=== PATIENT | female | born 1965 | race Hispanic/Latino ===

== ENCOUNTER 2017-06-07 12:47 | Emergency (ER) | payer OTHER ==
[~2017-06-07 12:47] MED LIST: INSLAN SQ; LINA5TAB PO; METO10TA41 PO; MIDO2.5T PO; PANT40TA25 PO; POTA10CA44 PO
[2017-06-07 15:07] LABS: BASOPHILS % (AUTO) 0.3 % (0.0-5.0); HEMATOCRIT 32.4 % (36-48); LYMPHOCYTES % (AUTO) 19.8 % (21.0-51.0); MEAN CORPUSCULAR HEMOGLOBIN 30.4 pg (27.0-33.0); MEAN CORPUSCULAR HGB CONC 35.8 g/dL (32.0-36.0); MEAN CORPUSCULAR VOLUME 85.1 fL (79-99); MONOCYTES % (AUTO) 5.7 % (3.0-13.0); NEUTROPHILS % (AUTO) 74.2 % (40.0-77.0); NUCLEATED RED BLOOD CELLS 0.1 % (0.0-0.19); PLATELET COUNT (AUTO) 309 K/uL (130-400); RED CELL DISTRIBUTION WIDTH 14.5 % (11.0-15.5); WHITE BLOOD COUNT (AUTO) 7.3 K/uL (4.8-10.8)
[2017-06-07 15:16] LABS: CREATININE 0.5 mg/dL (0.5-1.5)
[2017-06-07 15:21] LABS: ALBUMIN 3.5 g/dL (3.5-5.0); BILIRUBIN,TOTAL 0.4 mg/dL (0.2-1.0); TOTAL PROTEIN, SERUM 6.8 g/dL (6.0-8.3)
[2017-06-07] MEDS ORDERED: SODIUM CHLORIDE 0.9% 1000ML 1,000 ML IV ONE (15:22)
[2017-06-07] MEDS ORDERED: LIDOCAINE HCL 2% VISCOUS 15 ML UDCUP ONE (15:22)
== END 2017-06-07 18:03 | disposition home or self-care (01) ==
LOC: EDH 12:47
DX: K56.41 Fecal impaction (principal); K21.9 Gastro-esophageal reflux disease without esophagitis; E11.9 Type 2 diabetes mellitus without complications; Z79.4 Long term (current) use of insulin
CPT/HCPCS: 36415; 80053; 85025; 96360; 96361; 99285; J7030

== ENCOUNTER 2017-06-16 12:14 | Emergency (ER) | payer OTHER ==
[2017-06-16 13:20] LABS: BASOPHILS % (AUTO) 0.5 % (0.0-5.0); EOSINOPHILS % (AUTO) 0.2 % (0.0-8.0); LYMPHOCYTES % (AUTO) 28.1 % (21.0-51.0); MEAN CORPUSCULAR HEMOGLOBIN 29.6 pg (27.0-33.0); MEAN CORPUSCULAR VOLUME 84.5 fL (79-99); MONOCYTES % (AUTO) 8.7 % (3.0-13.0); NEUTROPHILS % (AUTO) 62.5 % (40.0-77.0); PLATELET COUNT (AUTO) 313 K/uL (130-400); RED BLOOD CELL COUNT(AUTO) 4.26 MIL/uL (4.00-5.50); WHITE BLOOD COUNT (AUTO) 4.3 K/uL (4.8-10.8)
[2017-06-16] MEDS ORDERED: SODIUM CHLORIDE 0.9% 1000ML 1,000 ML IV ONE ×3 (13:21→20:22)
[2017-06-16] MEDS ORDERED: LORAZEPAM 2 MG/ML 1 ML VIAL ONE (13:22)
[2017-06-16 13:38] LABS: CREATININE 0.6 mg/dL (0.5-1.5); POTASSIUM 4.1 mmol/L (3.5-5.1)
[2017-06-16 13:42] LABS: ALBUMIN 3.6 g/dL (3.5-5.0); BILIRUBIN,TOTAL 0.4 mg/dL (0.2-1.0); TOTAL PROTEIN, SERUM 7.6 g/dL (6.0-8.3)
[2017-06-16 14:28] LABS: ACETAMINOPHEN < 1 mcg/mL (10-30); ALCOHOL, BLOOD < 3 mg/dL (0-10); SALICYLATE < 2.8 mg/dL (2.8-20.0)
[2017-06-16 14:44] LABS: APPEARANCE,URINE SLIGHTLY CLOUDY (CLEAR); BILIRUBIN,URINE Negative (NEGATIVE); COLOR,URINE Yellow (YELLOW); GLUCOSE, URINE (UA) TRACE mg/dL (NEGATIVE); KETONES,URINE 15 mg/dL (NEGATIVE); LEUKOCYTE ESTERASE ,URINE Small (NEGATIVE); NITRATE,URINE Negative (NEGATIVE); OCCULT BLOOD,URINE Negative (NEGATIVE); PROTEIN,URINE Negative (NEGATIVE); UROBILINOGEN,URINE 0.2 mg/dL (0.2-1.0)
[2017-06-16] MEDS ORDERED: ONDANSETRON HCL 4 MG/2 ML VIAL ONE ×2 (14:44→20:37)
[2017-06-16 15:01] LABS: HCG,QUAL RESULT NEGATIVE (NEGATIVE)
[2017-06-16 15:04] LABS: AMPHET/METH SCREEN,URINE NEGATIVE (NEGATIVE); BARBITURATE SCREEN, URINE NEGATIVE (NEGATIVE); BENZODIAZEPINES SCREEN,URINE NEGATIVE (NEGATIVE); CANNABINOID SCREEN,URINE NEGATIVE (NEGATIVE); COCAINE SCREEN,URINE NEGATIVE (NEGATIVE); OPIATE SCREEN,URINE NEGATIVE (NEGATIVE); PHENCYCLIDINE SCREEN,URINE NEGATIVE (NEGATIVE)
[2017-06-16 15:22] LABS: BACTERIA,URINE Rare /HPF (None Seen); RBC,URINE 0-1 /HPF (0-1); YEAST,URINE BUDDING Moderate /HPF (None Seen)
[2017-06-16 15:23] LABS: SQUAMOUS EPITHELIAL CELL,UR Moderate /LPF (0-2)
== END 2017-06-16 21:17 | disposition short-term general hospital (02) ==
LOC: EDH 12:14
DX: F41.9 Anxiety disorder, unspecified (principal); F32.9 Major depressive disorder, single episode, unspecified; R63.0 Anorexia; R11.2 Nausea with vomiting, unspecified; E11.9 Type 2 diabetes mellitus without complications; K21.9 Gastro-esophageal reflux disease without esophagitis; E87.6 Hypokalemia; Z88.1 Allergy status to other antibiotic agents; Z79.899 Other long term (current) drug therapy
CPT/HCPCS: 36415; 80053; 80305; 81001; 81025; 83690; 84484; 85025; 87804 ×2; 93005; 96361; 96374; 96375; 96376; 99285; G0480 ×2; G0481; J2060; J2405 ×2; J7030 ×3

== ENCOUNTER → 2017-06-29 | Outpatient (CLI) | payer OTHER ==
[~2017-06-29] MED LIST changes: +LAMO25TA3 PO; +METO5TAB2 PO; +MULT-1296 PO; +Midodrine Hcl PO; +SERT25TA5 PO; +SULF1TAB42 PO
[2017-06-29 09:57] LABS: HEMATOCRIT 31.9 % (36-48); MEAN CORPUSCULAR HEMOGLOBIN 29.4 pg (27.0-33.0); MEAN CORPUSCULAR HGB CONC 34.2 g/dL (32.0-36.0); MEAN CORPUSCULAR VOLUME 86.1 fL (79-99); PLATELET COUNT (AUTO) 320 K/uL (130-400); RED CELL DISTRIBUTION WIDTH 13.9 % (11.0-15.5); WHITE BLOOD COUNT (AUTO) 6.7 K/uL (4.8-10.8)
[2017-06-29 10:17] LABS: ALBUMIN 3.2 g/dL (3.5-5.0); BILIRUBIN,DIRECT 0.1 mg/dL (0.0-0.3); BILIRUBIN,TOTAL 0.3 mg/dL (0.2-1.0); CREATININE 0.4 mg/dL (0.5-1.5); MAGNESIUM 1.7 mg/dL (1.80-2.40); PHOSPHORUS 3.8 mg/dL (2.5-4.9); POTASSIUM 4.2 mmol/L (3.5-5.1); TOTAL PROTEIN, SERUM 6.5 g/dL (6.0-8.3)
== END | disposition home or self-care (01) ==
LOC: LAB 09:11
PROVIDERS: ATTEND Family Medicine
DX: E11.43 Type 2 diabetes mellitus with diabetic autonomic (poly)neuropathy (principal)
CPT/HCPCS: 36415; 80048; 80076; 83735; 84100; 85027

== ENCOUNTER → 2017-07-11 | Outpatient (CLI) | payer OTHER ==
[2017-07-11 12:21] LABS: THYROID STIMULATING HORMONE 2.33 uIU/mL (0.36-3.74)
== END ==
LOC: LAB 10:46
PROVIDERS: ATTEND Internal Medicine Cardiovascular Disease
DX: I95.9 Hypotension, unspecified (principal); R00.0 Tachycardia, unspecified
CPT/HCPCS: 36415; 84436; 84443; 84479; 85378

== ENCOUNTER 2017-08-05 16:47 | Inpatient (IN) | payer OTHER ==
[~2017-08-05] VITALS: Ht 149.9 cm; Wt 35.1 kg
[~2017-08-05 16:47] MED LIST changes: -LAMO25TA3 PO; -METO5TAB2 PO; -MULT-1296 PO; -Midodrine Hcl PO; -SERT25TA5 PO; -SULF1TAB42 PO
[2017-08-05] MEDS ORDERED: ONDANSETRON HCL 4 MG/2 ML VIAL ONE (17:50)
[2017-08-05 17:57] LABS: BASOPHILS % (AUTO) 0.3 % (0.0-5.0); EOSINOPHILS % (AUTO) 0.2 % (0.0-8.0); HEMATOCRIT 35.8 % (36-48); LYMPHOCYTES % (AUTO) 28.5 % (21.0-51.0); MEAN CORPUSCULAR HEMOGLOBIN 29.7 pg (27.0-33.0); MEAN CORPUSCULAR HGB CONC 35.2 g/dL (32.0-36.0); MEAN CORPUSCULAR VOLUME 84.4 fL (79-99); MONOCYTES % (AUTO) 7.9 % (3.0-13.0); NEUTROPHILS % (AUTO) 63.1 % (40.0-77.0); NUCLEATED RED BLOOD CELLS 0.1 % (0.0-0.19); PLATELET COUNT (AUTO) 362 K/uL (130-400); RED BLOOD CELL COUNT(AUTO) 4.24 MIL/uL (4.00-5.50); WHITE BLOOD COUNT (AUTO) 6.3 K/uL (4.8-10.8)
[2017-08-05 18:08] LABS: CREATININE 0.6 mg/dL (0.5-1.5); POTASSIUM 3.8 mmol/L (3.5-5.1)
[2017-08-05 18:13] LABS: ALBUMIN 3.7 g/dL (3.5-5.0); BILIRUBIN,TOTAL 0.5 mg/dL (0.2-1.0); TOTAL PROTEIN, SERUM 7.7 g/dL (6.0-8.3)
[2017-08-05 18:13] LABS: APPEARANCE,URINE Turbid (CLEAR); BILIRUBIN,URINE Negative (NEGATIVE); COLOR,URINE Yellow (YELLOW); GLUCOSE, URINE (UA) 250 mg/dL (NEGATIVE); KETONES,URINE 15 mg/dL (NEGATIVE); LEUKOCYTE ESTERASE ,URINE Moderate (NEGATIVE); NITRATE,URINE Negative (NEGATIVE); OCCULT BLOOD,URINE Negative (NEGATIVE); PH,URINE 6.5 (5.0-8.0); PROTEIN,URINE Trace (NEGATIVE)
[2017-08-05 18:18] LABS: BACTERIA,URINE Moderate /HPF (None Seen); RBC,URINE None Seen /HPF (0-1)
[2017-08-05 18:19] LABS: YEAST,URINE BUDDING Many /HPF (None Seen)
[2017-08-05 20:11] VITALS: BP 153/82
[2017-08-05] MEDS ORDERED: SODIUM CHLORIDE 0.9% 1000ML 1,000 ML IV SCH (20:30)
[2017-08-05] MEDS ORDERED: SERT25TA5 PO (21:29)
[2017-08-05] MEDS ORDERED: METO5TAB2 PO (21:29)
[2017-08-05] MEDS ORDERED: INSLAN SQ (21:29)
[2017-08-05] MEDS ORDERED: MULT-1296 PO (21:29)
[2017-08-05] MEDS: FAMOTIDINE 20MG TAB 20 MG TAB PO SCH (21:57)
[2017-08-05] MEDS: SODIUM CHLORIDE 0.9% 1000ML 1,000 ML IV SCH (23:22)
[2017-08-05] MEDS ORDERED: ONDANSETRON HCL 4 MG/2 ML VIAL IV PRN (23:30)
[2017-08-05] MEDS: INSULIN HUMULIN R 100 UNIT/ML 3ML SQ SCH (23:30)
[2017-08-05] MEDS ORDERED: GLUCAGON 1MG KIT 1 MG ML IM PRN (23:30)
[2017-08-05] MEDS: METOCLOPRAMIDE 10 MG/2 ML VIAL IVP SCH (23:30)
[2017-08-05] MEDS ORDERED: CEFTRIAXONE 1GM/D5W 50ML 50 ML IV SCH (23:30)
[2017-08-05] MEDS ORDERED: POTASSIUM CHLORIDE 20MEQ/100ML 100 ML IV PRN (23:30)
[2017-08-05] MEDS ORDERED: DEXTROSE 50%-WATER 50 ML DISP.SYRIN IV PRN (23:30)
[2017-08-05] MEDS ORDERED: MORPHINE SULFATE 2 MG/ML 1ML SYG IV PRN (23:30)
[2017-08-05] MEDS ORDERED: LIDOCAINE HCL-MPF 1% 2ML VIAL IVP PRN (23:30)
[2017-08-05 23:35] VITALS: BP 146/89
[2017-08-05] MEDS ORDERED: FLUCONAZOLE 100 MG TAB PO ONE (23:45)
[2017-08-06] MEDS: CEFTRIAXONE SODIUM 1 GM IVP SCH (01:14)
[2017-08-06] MEDS: SODIUM CHLORIDE 0.9% 1000ML 1,000 ML IV SCH ×3 (01:14→12:06)
[2017-08-06] MEDS: FLUCONAZOLE 100 MG TAB ONE ×2 (01:15→01:18)
[2017-08-06 03:55] VITALS: BP 152/92
[2017-08-06] MEDS: INSULIN HUMULIN R 100 UNIT/ML 3ML SQ SCH ×3 (05:30→20:34)
[2017-08-06 06:01] LABS: HEMATOCRIT 34.9 % (36-48); MEAN CORPUSCULAR HEMOGLOBIN 29.6 pg (27.0-33.0); MEAN CORPUSCULAR HGB CONC 35.3 g/dL (32.0-36.0); MEAN CORPUSCULAR VOLUME 83.8 fL (79-99); NUCLEATED RED BLOOD CELLS 0.1 % (0.0-0.19); PLATELET COUNT (AUTO) 347 K/uL (130-400); RED BLOOD CELL COUNT(AUTO) 4.16 MIL/uL (4.00-5.50); RED CELL DISTRIBUTION WIDTH 12.8 % (11.0-15.5); WHITE BLOOD COUNT (AUTO) 5.5 K/uL (4.8-10.8)
[2017-08-06 06:07] LABS: CREATININE 0.4 mg/dL (0.5-1.5); POTASSIUM 3.4 mmol/L (3.5-5.1)
[2017-08-06] MEDS: POTASSIUM CHLORIDE 20 MEQ ERTAB PO PRN (06:53)
[2017-08-06 07:00] VITALS: BP 158/95
[2017-08-06] MEDS: METOCLOPRAMIDE 10 MG/2 ML VIAL IVP SCH ×3 (07:30→23:30)
[2017-08-06] MEDS: FAMOTIDINE/PF 20 MG/2 ML VIAL IV SCH ×2 (09:00→19:55)
[2017-08-06] MEDS: FAMOTIDINE 20MG TAB 20 MG TAB PO SCH (09:01)
[2017-08-06] MEDS ORDERED: LIDOCAINE HCL 2% VISCOUS 30 ML, MAG HYDROX/AL HYDROX/SIMETH 30 ML, DICYCLOMINE HCL 20 MG PO PRN ×3 (09:45)
[2017-08-06] MEDS ORDERED: LIDOCAINE HCL 2% VISCOUS 30 ML, MAG HYDROX/AL HYDROX/SIMETH 30 ML, BELLADONNA-PHENOBARB... PO PRN ×3 (09:45)
[2017-08-06] MEDS ORDERED: COMPOUND PO MISCELLANEOUS 1 EACH MISC MISC PRN (09:45)
[2017-08-06] MEDS ORDERED: LACTULOSE 20 GM/30 ML UDCUP PO PRN (09:45)
[2017-08-06 11:00] VITALS: BP 157/90
[2017-08-06] MEDS ORDERED: MULTIVITAMIN WITH MINERALS TABLET PO ONE (12:01)
[2017-08-06] MEDS: MEGESTROL 400 MG/10 ML UDCUP PO SCH (12:05)
[2017-08-06] MEDS: POLYETHYLENE GLYCOL 3350 17 GM POWD.PACK PO SCH (12:06)
[2017-08-06 15:50] VITALS: BP 155/92
[2017-08-06] MEDS: POTASSIUM CHLORIDE 10% ELIXIR 20 MEQ/15 ML UDCUP PO PRN (18:25)
[2017-08-06 19:00] VITALS: BP 153/98
[2017-08-06] MEDS: THIAMINE HCL 100 MG/ML 2ML VIAL IVP SCH (19:56)
[2017-08-06] MEDS: LAMOTRIGINE 25 MG TAB PO SCH (19:56)
[2017-08-06] MEDS: ALPRAZOLAM 0.25 MG TABLET PO SCH (20:30)
[2017-08-06 23:48] VITALS: BP 142/87
[2017-08-07] MEDS: CEFTRIAXONE SODIUM 1 GM IVP SCH (00:27)
[2017-08-07 03:55] VITALS: BP 144/89
[2017-08-07 05:12] LABS: HEMATOCRIT 36.6 % (36-48); MEAN CORPUSCULAR HEMOGLOBIN 29.6 pg (27.0-33.0); MEAN CORPUSCULAR HGB CONC 35.3 g/dL (32.0-36.0); MEAN CORPUSCULAR VOLUME 83.8 fL (79-99); NUCLEATED RED BLOOD CELLS 0.1 % (0.0-0.19); PLATELET COUNT (AUTO) 372 K/uL (130-400); RED BLOOD CELL COUNT(AUTO) 4.37 MIL/uL (4.00-5.50); RED CELL DISTRIBUTION WIDTH 12.8 % (11.0-15.5); WHITE BLOOD COUNT (AUTO) 5.6 K/uL (4.8-10.8)
[2017-08-07] MEDS: INSULIN HUMULIN R 100 UNIT/ML 3ML SQ SCH ×4 (05:30→23:30)
[2017-08-07 05:31] LABS: CREATININE 0.5 mg/dL (0.5-1.5); MAGNESIUM 1.9 mg/dL (1.80-2.40); PHOSPHORUS 3.3 mg/dL (2.5-4.9); POTASSIUM 4.1 mmol/L (3.5-5.1)
[2017-08-07] MEDS: METOCLOPRAMIDE 10 MG/2 ML VIAL IVP SCH ×4 (06:17→23:30)
[2017-08-07] MEDS: LINAGLIPTIN 5 MG TABLET PO SCH (08:56)
[2017-08-07] MEDS: MULTIVITAMINS/MINERALS/IRO TAB PO SCH (08:56)
[2017-08-07] MEDS: THIAMINE HCL 100 MG/ML 2ML VIAL IVP SCH (08:57)
[2017-08-07] MEDS: SERTRALINE HCL 50 MG TABLET PO SCH (08:57)
[2017-08-07] MEDS: FAMOTIDINE/PF 20 MG/2 ML VIAL IV SCH ×2 (08:57→20:34)
[2017-08-07] MEDS: ALPRAZOLAM 0.25 MG TABLET PO SCH ×3 (08:57→20:35)
[2017-08-07] MEDS: MEGESTROL 400 MG/10 ML UDCUP PO SCH (08:57)
[2017-08-07] MEDS: ENOXAPARIN SODIUM 30 MG/0.3 ML SQ SCH (08:58)
[2017-08-07] MEDS: POLYETHYLENE GLYCOL 3350 17 GM POWD.PACK PO SCH (08:59)
[2017-08-07 10:21] VITALS: BP 146/91
[2017-08-07] MEDS: SODIUM CHLORIDE 0.9% 1000ML 1,000 ML IV SCH (16:35)
[2017-08-07 18:30] VITALS: BP 132/87
[2017-08-07 20:00] VITALS: BP 144/84
[2017-08-07] MEDS: LAMOTRIGINE 25 MG TAB PO SCH (20:34)
[2017-08-07 23:56] VITALS: BP 145/93
[2017-08-07 23:58] VITALS: BP 108/75
[2017-08-08] VITALS: BP 74/54
[2017-08-08] MEDS: CEFTRIAXONE SODIUM 1 GM IVP SCH (01:27)
[2017-08-08 04:00] VITALS: BP 129/79
[2017-08-08 05:04] LABS: MEAN CORPUSCULAR HEMOGLOBIN 29.3 pg (27.0-33.0); MEAN CORPUSCULAR HGB CONC 35.1 g/dL (32.0-36.0); MEAN CORPUSCULAR VOLUME 83.6 fL (79-99); PLATELET COUNT (AUTO) 352 K/uL (130-400); RED BLOOD CELL COUNT(AUTO) 4.19 MIL/uL (4.00-5.50); RED CELL DISTRIBUTION WIDTH 12.5 % (11.0-15.5); WHITE BLOOD COUNT (AUTO) 6.5 K/uL (4.8-10.8)
[2017-08-08 05:45] LABS: CREATININE 0.5 mg/dL (0.5-1.5); POTASSIUM 3.3 mmol/L (3.5-5.1)
[2017-08-08] MEDS: METOCLOPRAMIDE 10 MG/2 ML VIAL IVP SCH (06:13)
[2017-08-08] MEDS: POTASSIUM CHLORIDE 20 MEQ ERTAB PO PRN ×3 (06:28→14:48)
[2017-08-08] MEDS: INSULIN HUMULIN R 100 UNIT/ML 3ML SQ SCH ×4 (06:30→21:25)
[2017-08-08] MEDS: THIAMINE HCL 100 MG/ML 2ML VIAL IVP SCH (07:53)
[2017-08-08] MEDS: FAMOTIDINE/PF 20 MG/2 ML VIAL IV SCH ×2 (07:53→20:46)
[2017-08-08] MEDS: MEGESTROL 400 MG/10 ML UDCUP PO SCH (07:53)
[2017-08-08] MEDS: SERTRALINE HCL 50 MG TABLET PO SCH (07:54)
[2017-08-08] MEDS: MULTIVITAMINS/MINERALS/IRO TAB PO SCH (07:54)
[2017-08-08] MEDS: POLYETHYLENE GLYCOL 3350 17 GM POWD.PACK PO SCH (07:54)
[2017-08-08] MEDS: ENOXAPARIN SODIUM 30 MG/0.3 ML SQ SCH (07:55)
[2017-08-08] MEDS: LINAGLIPTIN 5 MG TABLET PO SCH (07:58)
[2017-08-08] MEDS: ALPRAZOLAM 0.25 MG TABLET PO SCH ×3 (07:58→21:00)
[2017-08-08 08:00] VITALS: BP_SYST 102; BP_SYST 111; BP_DIAS 53; BP_DIAS 62
[2017-08-08] MEDS: POTASSIUM CHLORIDE 10% ELIXIR 20 MEQ/15 ML UDCUP PO PRN (08:32)
[2017-08-08 12:00] VITALS: BP_SYST 120; BP_SYST 145; BP_SYST 76; BP_DIAS 47; BP_DIAS 77; BP_DIAS 85
[2017-08-08] MEDS: MIDODRINE HCL 5 MG TABLET PO SCH ×2 (14:47→20:46)
[2017-08-08] MEDS: METOCLOPRAMIDE 10 MG TABLET PO SCH ×2 (14:48→21:59)
[2017-08-08 15:46] VITALS: BP 147/95
[2017-08-08] MEDS: INSULIN GLARGINE 100 UNITS/ML 10 ML VIAL SQ SCH (16:48)
[2017-08-08 20:00] VITALS: BP 81/53
[2017-08-08] MEDS: LAMOTRIGINE 25 MG TAB PO SCH (20:46)
[2017-08-09] VITALS (8 sets, daily range): BP systolic 64–149; BP diastolic 43–95
[2017-08-09] MEDS: CEFTRIAXONE SODIUM 1 GM IVP SCH (01:00)
[2017-08-09 04:44] LABS: CREATININE 0.7 mg/dL (0.5-1.5); POTASSIUM 4.6 mmol/L (3.5-5.1)
[2017-08-09] MEDS: METOCLOPRAMIDE 10 MG TABLET PO SCH ×3 (05:56→21:53)
[2017-08-09] MEDS: INSULIN HUMULIN R 100 UNIT/ML 3ML SQ SCH ×4 (05:57→21:53)
[2017-08-09] MEDS: INSULIN GLARGINE 100 UNITS/ML 10 ML VIAL SQ SCH ×2 (06:40→16:42)
[2017-08-09] MEDS: SERTRALINE HCL 50 MG TABLET PO SCH (08:32)
[2017-08-09] MEDS: MULTIVITAMINS/MINERALS/IRO TAB PO SCH (08:32)
[2017-08-09] MEDS: FAMOTIDINE/PF 20 MG/2 ML VIAL IV SCH ×2 (08:32→20:24)
[2017-08-09] MEDS: POLYETHYLENE GLYCOL 3350 17 GM POWD.PACK PO SCH (08:32)
[2017-08-09] MEDS: LINAGLIPTIN 5 MG TABLET PO SCH (08:32)
[2017-08-09] MEDS: MIDODRINE HCL 5 MG TABLET PO SCH ×3 (08:32→20:24)
[2017-08-09] MEDS: THIAMINE HCL 100 MG/ML 2ML VIAL IVP SCH (08:32)
[2017-08-09] MEDS: MEGESTROL 400 MG/10 ML UDCUP PO SCH (08:32)
[2017-08-09] MEDS: ALPRAZOLAM 0.25 MG TABLET PO SCH ×3 (08:32→21:00)
[2017-08-09] MEDS: ENOXAPARIN SODIUM 30 MG/0.3 ML SQ SCH (08:33)
[2017-08-09] MEDS: LAMOTRIGINE 25 MG TAB PO SCH (20:24)
[2017-08-10] MEDS: CEFTRIAXONE SODIUM 1 GM IVP SCH (01:03)
[2017-08-10 03:36] VITALS: BP 148/95
[2017-08-10 03:37] VITALS: BP 135/86
[2017-08-10 03:38] VITALS: BP 98/66
[2017-08-10 04:47] LABS: CREATININE 0.8 mg/dL (0.5-1.5); MAGNESIUM 1.9 mg/dL (1.80-2.40); PHOSPHORUS 2.6 mg/dL (2.5-4.9); POTASSIUM 4.4 mmol/L (3.5-5.1)
[2017-08-10] MEDS: METOCLOPRAMIDE 10 MG TABLET PO SCH (05:47)
[2017-08-10] MEDS: INSULIN HUMULIN R 100 UNIT/ML 3ML SQ SCH ×2 (05:56→12:07)
[2017-08-10] MEDS: INSULIN GLARGINE 100 UNITS/ML 10 ML VIAL SQ SCH (06:21)
[2017-08-10] MEDS: POLYETHYLENE GLYCOL 3350 17 GM POWD.PACK PO SCH (07:57)
[2017-08-10] MEDS: MIDODRINE HCL 5 MG TABLET PO SCH (07:58)
[2017-08-10] MEDS: ALPRAZOLAM 0.25 MG TABLET PO SCH (07:59)
[2017-08-10 08:00] VITALS: BP_SYST 116; BP_SYST 64; BP_SYST 82; BP_DIAS 38; BP_DIAS 53; BP_DIAS 69
[2017-08-10] MEDS: THIAMINE HCL 100 MG/ML 2ML VIAL IVP SCH (08:00)
[2017-08-10] MEDS: MULTIVITAMINS/MINERALS/IRO TAB PO SCH (08:00)
[2017-08-10] MEDS: FAMOTIDINE/PF 20 MG/2 ML VIAL IV SCH (08:00)
[2017-08-10] MEDS: LINAGLIPTIN 5 MG TABLET PO SCH (08:00)
[2017-08-10] MEDS: MEGESTROL 400 MG/10 ML UDCUP PO SCH (08:00)
[2017-08-10] MEDS: SERTRALINE HCL 50 MG TABLET PO SCH (08:01)
[2017-08-10] MEDS: ENOXAPARIN SODIUM 30 MG/0.3 ML SQ SCH (08:03)
[2017-08-10] MEDS ORDERED: LAMO25TA3 PO (08:47)
[2017-08-10] MEDS ORDERED: Midodrine Hcl PO (08:47)
[2017-08-10] MEDS ORDERED: SULF1TAB42 PO (08:47)
== END 2017-08-10 13:50 | disposition home or self-care (01) | DRG 73 ==
LOC: EDH 16:47 → OBSVTOIN 18:30 → 3DH 18:30
PROVIDERS: ADMIT Internal Medicine; ATTEND Internal Medicine
DX: E11.43 Type 2 diabetes mellitus with diabetic autonomic (poly)neuropathy (principal); E43 Unspecified severe protein-calorie malnutrition; R64 Cachexia; E11.65 Type 2 diabetes mellitus with hyperglycemia; K31.84 Gastroparesis; I95.1 Orthostatic hypotension; B37.9 Candidiasis, unspecified; N39.0 Urinary tract infection, site not specified; Z68.1 Body mass index [BMI] 19.9 or less, adult; E86.0 Dehydration; F32.9 Major depressive disorder, single episode, unspecified; R62.7 Adult failure to thrive; F41.1 Generalized anxiety disorder; K21.9 Gastro-esophageal reflux disease without esophagitis; Z79.899 Other long term (current) drug therapy
CPT/HCPCS: 36415; 71045; 74021; 80048; 80053; 81001; 82533; 82550; 82948; 83735; 84100; 84443; 85025; 85027; 87088; 87186; 87804; A4218; J0696; J1650; J1815; J2405; J3411; J3490; J7030

== ENCOUNTER → 2017-08-15 | Outpatient (CLI) | payer OTHER ==
[~2017-08-15] MED LIST changes: +LAMO25TA3 PO; -METO10TA41 PO; +METO5TAB2 PO; -MIDO2.5T PO; +MULT-1296 PO; +Midodrine Hcl PO; -PANT40TA25 PO; -POTA10CA44 PO; +SERT25TA5 PO; +SULF1TAB42 PO
[2017-08-15 16:22] LABS: HEMATOCRIT 34.2 % (36-48); MEAN CORPUSCULAR HEMOGLOBIN 29.4 pg (27.0-33.0); MEAN CORPUSCULAR HGB CONC 34.7 g/dL (32.0-36.0); MEAN CORPUSCULAR VOLUME 84.8 fL (79-99); PLATELET COUNT (AUTO) 412 K/uL (130-400); RED BLOOD CELL COUNT(AUTO) 4.03 MIL/uL (4.00-5.50); RED CELL DISTRIBUTION WIDTH 12.9 % (11.0-15.5); WHITE BLOOD COUNT (AUTO) 5.5 K/uL (4.8-10.8)
[2017-08-15 16:48] LABS: CREATININE 0.9 mg/dL (0.5-1.5); MAGNESIUM 2.2 mg/dL (1.80-2.40); PHOSPHORUS 3.5 mg/dL (2.5-4.9); POTASSIUM 5.4 mmol/L (3.5-5.1)
== END | disposition home or self-care (01) ==
LOC: LAB 10:00
PROVIDERS: ATTEND Family Medicine
DX: R62.7 Adult failure to thrive (principal)
CPT/HCPCS: 36415; 80048; 83735; 84100; 85027

== ENCOUNTER → 2017-09-13 | Outpatient (CLI) | payer OTHER ==
[2017-09-13 16:49] LABS: BASOPHILS % (AUTO) 0.5 % (0.0-5.0); EOSINOPHILS % (AUTO) 0.5 % (0.0-8.0); LYMPHOCYTES % (AUTO) 38.8 % (21.0-51.0); MEAN CORPUSCULAR HEMOGLOBIN 30.1 pg (27.0-33.0); MEAN CORPUSCULAR HGB CONC 35.2 g/dL (32.0-36.0); MEAN CORPUSCULAR VOLUME 85.6 fL (79-99); MONOCYTES % (AUTO) 7.1 % (3.0-13.0); NEUTROPHILS % (AUTO) 53.1 % (40.0-77.0); NUCLEATED RED BLOOD CELLS 0.1 % (0.0-0.19); PLATELET COUNT (AUTO) 352 K/uL (130-400); RED BLOOD CELL COUNT(AUTO) 3.97 MIL/uL (4.00-5.50); RED CELL DISTRIBUTION WIDTH 14.1 % (11.0-15.5); WHITE BLOOD COUNT (AUTO) 5.1 K/uL (4.8-10.8)
[2017-09-13 17:16] LABS: ALBUMIN 3.6 g/dL (3.5-5.0); BILIRUBIN,TOTAL 0.3 mg/dL (0.2-1.0); CREATININE 0.7 mg/dL (0.5-1.5); POTASSIUM 4.3 mmol/L (3.5-5.1); THYROID STIMULATING HORMONE 1.51 uIU/mL (0.36-3.74); TOTAL PROTEIN, SERUM 7.4 g/dL (6.0-8.3)
== END | disposition home or self-care (01) ==
LOC: LAB 16:07
PROVIDERS: ATTEND Family Medicine
DX: E87.8 Other disorders of electrolyte and fluid balance, not elsewhere classified (principal); E63.9 Nutritional deficiency, unspecified
CPT/HCPCS: 36415; 80053; 82607; 82746; 84207; 84425; 84443; 85025

== ENCOUNTER 2017-10-21 15:32 | Emergency (ER) | payer OTHER ==
[2017-10-21] MEDS ORDERED: SODIUM CHLORIDE 0.9% 1000ML 1,000 ML IV ONE ×2 (15:54→19:58)
[2017-10-21 16:05] LABS: BASOPHILS % (AUTO) 0.3 % (0.0-5.0); EOSINOPHILS % (AUTO) 0.2 % (0.0-8.0); HEMATOCRIT 35.2 % (36-48); LYMPHOCYTES % (AUTO) 20.2 % (21.0-51.0); MEAN CORPUSCULAR HEMOGLOBIN 30.1 pg (27.0-33.0); MEAN CORPUSCULAR HGB CONC 35.8 g/dL (32.0-36.0); MEAN CORPUSCULAR VOLUME 84.1 fL (79-99); MONOCYTES % (AUTO) 5.9 % (3.0-13.0); NEUTROPHILS % (AUTO) 73.4 % (40.0-77.0); NUCLEATED RED BLOOD CELLS 0.1 % (0.0-0.19); PLATELET COUNT (AUTO) 359 K/uL (130-400); RED BLOOD CELL COUNT(AUTO) 4.18 MIL/uL (4.00-5.50); RED CELL DISTRIBUTION WIDTH 14.1 % (11.0-15.5); WHITE BLOOD COUNT (AUTO) 5.5 K/uL (4.8-10.8)
[2017-10-21 16:25] LABS: APPEARANCE,URINE Clear (CLEAR); BILIRUBIN,URINE Negative (NEGATIVE); COLOR,URINE Yellow (YELLOW); GLUCOSE, URINE (UA) Negative (NEGATIVE); KETONES,URINE 15 mg/dL (NEGATIVE); LEUKOCYTE ESTERASE ,URINE Negative (NEGATIVE); NITRATE,URINE Negative (NEGATIVE); OCCULT BLOOD,URINE Negative (NEGATIVE); PROTEIN,URINE POS 2+ (NEGATIVE)
[2017-10-21 16:41] LABS: CREATININE 0.6 mg/dL (0.5-1.5); POTASSIUM 3.7 mmol/L (3.5-5.1)
[2017-10-21 16:46] LABS: BILIRUBIN,DIRECT 0.1 mg/dL (0.0-0.3); BILIRUBIN,TOTAL 0.5 mg/dL (0.2-1.0); TOTAL PROTEIN, SERUM 7.6 g/dL (6.0-8.3)
[2017-10-21 18:28] LABS: BACTERIA,URINE Few /HPF (None Seen); RBC,URINE 0-1 /HPF (0-1); SQUAMOUS EPITHELIAL CELL,UR Few /HPF (0-2); TRANSITIONAL EPI CELLS,URINE Few /HPF (None Seen); WBC,URINE 0-1 /HPF (0-1)
[2017-10-21 18:29] LABS: MUCUS,URINE Few LPF (None Seen)
== END 2017-10-21 21:39 | disposition home or self-care (01) ==
LOC: EDH 15:32
DX: R55 Syncope and collapse (principal); M54.5 Low back pain; I95.9 Hypotension, unspecified; E11.9 Type 2 diabetes mellitus without complications; K21.9 Gastro-esophageal reflux disease without esophagitis; E87.6 Hypokalemia; Z79.899 Other long term (current) drug therapy
CPT/HCPCS: 36415; 70450; 72100; 80048; 80076; 81001; 82550; 84484; 85025; 93005; 96360; 96361; 99285; J7030 ×2

== ENCOUNTER → 2017-11-19 | Outpatient (CLI) | payer OTHER ==
[2017-11-19 16:35] LABS: BASOPHILS % (AUTO) 0.6 % (0.0-5.0); EOSINOPHILS % (AUTO) 0.9 % (0.0-8.0); HEMATOCRIT 29.4 % (36-48); LYMPHOCYTES % (AUTO) 32.9 % (21.0-51.0); MEAN CORPUSCULAR HEMOGLOBIN 29.6 pg (27.0-33.0); MEAN CORPUSCULAR HGB CONC 33.9 g/dL (32.0-36.0); MEAN CORPUSCULAR VOLUME 87.2 fL (79-99); MONOCYTES % (AUTO) 11.7 % (3.0-13.0); NEUTROPHILS % (AUTO) 53.9 % (40.0-77.0); PLATELET COUNT (AUTO) 323 K/uL (130-400); RED BLOOD CELL COUNT(AUTO) 3.37 MIL/uL (4.00-5.50); RED CELL DISTRIBUTION WIDTH 14.8 % (11.0-15.5)
[2017-11-19 16:50] LABS: ALANINE AMINOTRANSFERASE 15 U/L (12-78); ALBUMIN 3.2 g/dL (3.5-5.0); AMMONIA < 3 umol/L (11-32); ASPARTATE AMINOTRANSFERASE 9 U/L (10-37); BILIRUBIN,DIRECT 0.1 mg/dL (0.0-0.3); BILIRUBIN,TOTAL 0.2 mg/dL (0.2-1.0); TOTAL PROTEIN, SERUM 6.7 g/dL (6.0-8.3)
[2017-11-19 16:51] LABS: VALPROIC ACID 48 mcg/mL (50-100)
== END | disposition home or self-care (01) ==
LOC: LAB 16:06
PROVIDERS: ATTEND Psychiatry & Neurology Neurology
DX: Z51.81 Encounter for therapeutic drug level monitoring (principal)
CPT/HCPCS: 36415; 80076; 80164; 82140; 85025

== ENCOUNTER → 2018-02-28 | Outpatient (CLI) | payer OTHER ==
[2018-02-28 17:05] LABS: BASOPHILS % (AUTO) 0.3 % (0.0-5.0); EOSINOPHILS % (AUTO) 0.8 % (0.0-8.0); HEMATOCRIT 34.1 % (36-48); LYMPHOCYTES % (AUTO) 43.4 % (21.0-51.0); MEAN CORPUSCULAR HEMOGLOBIN 27.9 pg (27.0-33.0); MEAN CORPUSCULAR VOLUME 84.7 fL (79-99); MONOCYTES % (AUTO) 6.9 % (3.0-13.0); NEUTROPHILS % (AUTO) 48.6 % (40.0-77.0); PLATELET COUNT (AUTO) 233 K/uL (130-400); RED BLOOD CELL COUNT(AUTO) 4.02 MIL/uL (4.00-5.50); RED CELL DISTRIBUTION WIDTH 14.4 % (11.0-15.5); WHITE BLOOD COUNT (AUTO) 4.6 K/uL (4.8-10.8)
[2018-02-28 17:21] LABS: ALBUMIN 3.6 g/dL (3.5-5.0); BILIRUBIN,TOTAL 0.2 mg/dL (0.2-1.0); CREATININE 0.6 mg/dL (0.5-1.5); POTASSIUM 4.4 mmol/L (3.5-5.1); TOTAL PROTEIN, SERUM 7.6 g/dL (6.0-8.3)
== END | disposition home or self-care (01) ==
LOC: LAB 16:24
PROVIDERS: ATTEND Psychiatry & Neurology Neurology
DX: Z51.81 Encounter for therapeutic drug level monitoring (principal)
CPT/HCPCS: 36415; 80053; 80164; 82140; 85025

== ENCOUNTER → 2018-04-04 | Outpatient (CLI) | payer OTHER ==
[2018-04-04 09:42] LABS: BASOPHILS % (AUTO) 0.3 % (0.0-5.0); EOSINOPHILS % (AUTO) 0.4 % (0.0-8.0); LYMPHOCYTES % (AUTO) 24.9 % (21.0-51.0); MEAN CORPUSCULAR HEMOGLOBIN 29.1 pg (27.0-33.0); MEAN CORPUSCULAR HGB CONC 34.5 g/dL (32.0-36.0); MEAN CORPUSCULAR VOLUME 84.3 fL (79-99); MONOCYTES % (AUTO) 4.8 % (3.0-13.0); NEUTROPHILS % (AUTO) 69.6 % (40.0-77.0); PLATELET COUNT (AUTO) 230 K/uL (130-400); RED CELL DISTRIBUTION WIDTH 14.4 % (11.0-15.5); WHITE BLOOD COUNT (AUTO) 6.2 K/uL (4.8-10.8)
[2018-04-04 09:51] LABS: HEMOGLOBIN A1C 9.6 % (4.0-6.0)
[2018-04-04 09:57] LABS: ALBUMIN 3.5 g/dL (3.5-5.0); BILIRUBIN,DIRECT 0.1 mg/dL (0.0-0.3); BILIRUBIN,TOTAL 0.2 mg/dL (0.2-1.0); TOTAL PROTEIN, SERUM 7.5 g/dL (6.0-8.3)
== END | disposition home or self-care (01) ==
LOC: LAB 09:04
PROVIDERS: ATTEND Psychiatry & Neurology Neurology
DX: Z51.81 Encounter for therapeutic drug level monitoring (principal); E11.42 Type 2 diabetes mellitus with diabetic polyneuropathy; E11.39 Type 2 diabetes mellitus with other diabetic ophthalmic complication
CPT/HCPCS: 36415; 80061; 80076; 80164; 82140; 83036; 85025

== ENCOUNTER → 2018-05-24 | Outpatient (CLI) | payer OTHER | END | disposition home or self-care (01) | LOC: RAH 08:34 | PROVIDERS: ATTEND Family Medicine | DX: Z12.31 Encounter for screening mammogram for malignant neoplasm of breast (principal) | CPT/HCPCS: 77067 ==

== ENCOUNTER 2018-06-26 17:13 | Emergency (ER) | payer OTHER | END 2018-06-26 19:22 | disposition home or self-care (01) | LOC: EDH 17:13 | DX: S42.291A Other displaced fracture of upper end of right humerus, initial encounter for closed fracture (principal); S00.83XA Contusion of other part of head, initial encounter; M54.2 Cervicalgia; F32.9 Major depressive disorder, single episode, unspecified; E11.9 Type 2 diabetes mellitus without complications; K21.9 Gastro-esophageal reflux disease without esophagitis; E87.6 Hypokalemia; Z79.4 Long term (current) use of insulin; W18.39XA Other fall on same level, initial encounter; Y93.01 Activity, walking, marching and hiking; Y92.89 Other specified places as the place of occurrence of the external cause; Y99.8 Other external cause status | CPT/HCPCS: 70450; 70486; 72125; 73030 ==

== ENCOUNTER → 2018-06-28 | Outpatient (CLI) | payer OTHER | END | disposition home or self-care (01) | LOC: RAH 10:50 | PROVIDERS: ATTEND Orthopaedic Surgery | DX: S42.291A Other displaced fracture of upper end of right humerus, initial encounter for closed fracture (principal); M79.89 Other specified soft tissue disorders; X58.XXXA Exposure to other specified factors, initial encounter; Y93.89 Activity, other specified; Y92.89 Other specified places as the place of occurrence of the external cause; Y99.8 Other external cause status | CPT/HCPCS: 73200 ==

== ENCOUNTER → 2018-07-23 | Outpatient (CLI) | payer OTHER ==
[2018-07-23 08:37] LABS: BASOPHILS % (AUTO) 0.4 % (0.0-5.0); EOSINOPHILS % (AUTO) 1.4 % (0.0-8.0); HEMATOCRIT 31.3 % (36-48); LYMPHOCYTES % (AUTO) 27.5 % (21.0-51.0); MEAN CORPUSCULAR HEMOGLOBIN 28.8 pg (27.0-33.0); MEAN CORPUSCULAR HGB CONC 33.6 g/dL (32.0-36.0); MEAN CORPUSCULAR VOLUME 85.6 fL (79-99); MONOCYTES % (AUTO) 6.4 % (3.0-13.0); NEUTROPHILS % (AUTO) 64.3 % (40.0-77.0); PLATELET COUNT (AUTO) 243 K/uL (130-400); RED BLOOD CELL COUNT(AUTO) 3.65 MIL/uL (4.00-5.50); RED CELL DISTRIBUTION WIDTH 15.2 % (11.0-15.5); WHITE BLOOD COUNT (AUTO) 4.7 K/uL (4.8-10.8)
[2018-07-23 08:45] LABS: HEMOGLOBIN A1C 9.1 % (4.0-6.0)
[2018-07-23 08:58] LABS: ALBUMIN 3.6 g/dL (3.5-5.0); BILIRUBIN,TOTAL 0.2 mg/dL (0.2-1.0); CREATININE 0.6 mg/dL (0.5-1.5); THYROID STIMULATING HORMONE 5.71 uIU/mL (0.36-3.74); TOTAL PROTEIN, SERUM 7.6 g/dL (6.0-8.3)
== END | disposition home or self-care (01) ==
LOC: RAH 07:43
PROVIDERS: ATTEND Family Medicine
DX: R92.8 Other abnormal and inconclusive findings on diagnostic imaging of breast (principal)
CPT/HCPCS: 36415; 76641; 77065; 80053; 80061; 80164; 82043; 82306; 83036; 84443; 85025

== ENCOUNTER 2018-10-18 07:08 | Day surgery (SDC) | payer OTHER ==
[~2018-10-18] VITALS: Ht 149.9 cm; Wt 58.1 kg
[~2018-10-18 07:08] MED LIST changes: +DIVA-78 PO; -LAMO25TA3 PO; -METO5TAB2 PO; -Midodrine Hcl PO; +SODIUM CHLORIDE 0.9% 1000ML 1,000 ML IV ONE; -SULF1TAB42 PO
[2018-10-18 07:40] VITALS: BP 164/89
[2018-10-18] MEDS ORDERED: PROPOFOL 10 MG/ML 20ML VIAL IV ONE (08:29)
[2018-10-18 08:30] VITALS: BP 134/73
[2018-10-18 08:35] VITALS: BP 130/83
[2018-10-18 08:40] VITALS: BP 144/88
== END 2018-10-18 08:55 | disposition home or self-care (01) ==
LOC: DAH 07:08 → ENDO 07:08
PROVIDERS: ATTEND Internal Medicine
DX: K29.50 Unspecified chronic gastritis without bleeding (principal); K31.89 Other diseases of stomach and duodenum; K22.8 Other specified diseases of esophagus; K64.0 First degree hemorrhoids; K57.30 Diverticulosis of large intestine without perforation or abscess without bleeding; Z86.010 Personal history of colon polyps; Q39.4 Esophageal web; E11.9 Type 2 diabetes mellitus without complications; D64.9 Anemia, unspecified; Z80.0 Family history of malignant neoplasm of digestive organs; Z79.899 Other long term (current) drug therapy; B96.81 Helicobacter pylori [H. pylori] as the cause of diseases classified elsewhere; K21.0 Gastro-esophageal reflux disease with esophagitis
CPT/HCPCS: 43239; 43249; 82948 ×2; A4606; J2704; J7030

== ENCOUNTER → 2019-01-06 | Outpatient (CLI) | payer OTHER ==
[~2019-01-06] MED LIST changes: -LINA5TAB PO; -SODIUM CHLORIDE 0.9% 1000ML 1,000 ML IV ONE
[2019-01-06 11:04] LABS: HEMOGLOBIN A1C 10.3 % (4.0-6.0)
== END | disposition home or self-care (01) ==
LOC: LAB 09:10
PROVIDERS: ATTEND Internal Medicine
DX: E11.65 Type 2 diabetes mellitus with hyperglycemia (principal); R19.7 Diarrhea, unspecified
CPT/HCPCS: 36415; 82656; 82784; 83036; 83516; 83993; 86140; 87507

== ENCOUNTER 2019-01-25 15:31 | Emergency (ER) | payer OTHER ==
[2019-01-25] MEDS ORDERED: CHARCOAL/SORBITOL 50 GM/240 ML SUSP ONE (16:06)
[2019-01-25 16:15] LABS: APPEARANCE,URINE Cloudy (CLEAR); BILIRUBIN,URINE Negative (NEGATIVE); COLOR,URINE Yellow (YELLOW); GLUCOSE, URINE (UA) >=1000 mg/dL (NEGATIVE); KETONES,URINE Negative (NEGATIVE); LEUKOCYTE ESTERASE ,URINE Moderate (NEGATIVE); NITRATE,URINE Negative (NEGATIVE); OCCULT BLOOD,URINE Nonhemolyzed Trace (NEGATIVE); PH,URINE 7.5 (5.0-8.0); PROTEIN,URINE Negative (NEGATIVE); UROBILINOGEN,URINE 0.2 mg/dL (0.2-1.0)
[2019-01-25 16:23] LABS: AMPHET/METH SCREEN,URINE NEGATIVE (NEGATIVE); BARBITURATE SCREEN, URINE NEGATIVE (NEGATIVE); BENZODIAZEPINES SCREEN,URINE NEGATIVE (NEGATIVE); CANNABINOID SCREEN,URINE NEGATIVE (NEGATIVE); COCAINE SCREEN,URINE NEGATIVE (NEGATIVE); OPIATE SCREEN,URINE NEGATIVE (NEGATIVE); PHENCYCLIDINE SCREEN,URINE NEGATIVE (NEGATIVE)
[2019-01-25 16:27] LABS: BASOPHILS % (AUTO) 0.3 % (0.0-5.0); EOSINOPHILS % (AUTO) 0.5 % (0.0-8.0); HEMATOCRIT 32.3 % (36-48); LYMPHOCYTES % (AUTO) 40.2 % (21.0-51.0); MEAN CORPUSCULAR HEMOGLOBIN 28.3 pg (27.0-33.0); MEAN CORPUSCULAR HGB CONC 33.5 g/dL (32.0-36.0); MEAN CORPUSCULAR VOLUME 84.4 fL (79-99); MONOCYTES % (AUTO) 9.1 % (3.0-13.0); NEUTROPHILS % (AUTO) 49.9 % (40.0-77.0); PLATELET COUNT (AUTO) 200 K/uL (130-400); RED BLOOD CELL COUNT(AUTO) 3.83 MIL/uL (4.00-5.50); RED CELL DISTRIBUTION WIDTH 13.5 % (11.0-15.5); WHITE BLOOD COUNT (AUTO) 5.4 K/uL (4.8-10.8)
[2019-01-25 16:37] LABS: MAGNESIUM 1.8 mg/dL (1.80-2.40)
[2019-01-25] MEDS ORDERED: ONDANSETRON HCL 4 MG/2 ML VIAL ONE (16:37)
[2019-01-25] MEDS ORDERED: SODIUM CHLORIDE 0.9% 1000ML 1,000 ML IV ONE ×2 (16:37→17:01)
[2019-01-25 16:42] LABS: BACTERIA,URINE Few /HPF (None Seen); YEAST,URINE BUDDING Few /HPF (None Seen)
[2019-01-25 16:43] LABS: SQUAMOUS EPITHELIAL CELL,UR Moderate /HPF (0-2)
[2019-01-25 16:52] LABS: CARBON DIOXIDE 29 mmol/L (21-32); CHLORIDE 98 mmol/L (101-111); CREATININE 0.9 mg/dL (0.5-1.5); GLOMERULAR FILTR. RATE CALC 69 mL/min (>60); GLUCOSE,RANDOM 358 mg/dL (70-105); POTASSIUM 4.1 mmol/L (3.5-5.1); SODIUM SERUM 136 mmol/L (136-145); UREA NITROGEN, BLOOD 18 mg/dL (7-18)
[2019-01-25 16:56] LABS: ACETAMINOPHEN < 1 mcg/mL (10-30); ALANINE AMINOTRANSFERASE 12 U/L (12-78); ALBUMIN 3.8 g/dL (3.5-5.0); ALCOHOL, BLOOD < 3 mg/dL (0-10); ASPARTATE AMINOTRANSFERASE 12 U/L (10-37); BILIRUBIN,TOTAL 0.2 mg/dL (0.2-1.0); CREATINE KINASE, TOTAL 58 U/L (21-232); SALICYLATE < 2.8 mg/dL (2.8-20.0); TOTAL PROTEIN, SERUM 7.4 g/dL (6.0-8.3)
[2019-01-25] MEDS ORDERED: CEFTRIAXONE SODIUM 1 GM ONE (17:00)
== END 2019-01-26 16:59 ==
LOC: EDH 15:31
DX: T42.6X2A Poisoning by other antiepileptic and sedative-hypnotic drugs, intentional self-harm, initial encounter (principal); T46.6X2A Poisoning by antihyperlipidemic and antiarteriosclerotic drugs, intentional self-harm, initial encounter; N39.0 Urinary tract infection, site not specified; I10 Essential (primary) hypertension; F32.9 Major depressive disorder, single episode, unspecified; Y92.89 Other specified places as the place of occurrence of the external cause
CPT/HCPCS: 36415; 80053; 80164 ×2; 80305; 81001; 82140; 82550; 82948; 83735; 84484; 85025; 87088; 93005; 96374; 96375; 99291; G0480 ×2; G0481; J0696; J2405; J7030 ×2

== ENCOUNTER 2019-02-25 19:41 | Emergency (ER) | payer OTHER ==
[2019-02-25] MEDS ORDERED: ONDANSETRON HCL 4 MG/2 ML VIAL ONE (20:26)
[2019-02-25] MEDS ORDERED: SODIUM CHLORIDE 0.9% 1000ML 1,000 ML IV ONE (20:28)
[2019-02-25 20:32] LABS: BASOPHILS % (AUTO) 0.3 % (0.0-5.0); EOSINOPHILS % (AUTO) 0.1 % (0.0-8.0); HEMATOCRIT 32.4 % (36-48); LYMPHOCYTES % (AUTO) 29.4 % (21.0-51.0); MEAN CORPUSCULAR HEMOGLOBIN 29.2 pg (27.0-33.0); MEAN CORPUSCULAR HGB CONC 34.1 g/dL (32.0-36.0); MEAN CORPUSCULAR VOLUME 85.5 fL (79-99); MONOCYTES % (AUTO) 2.9 % (3.0-13.0); NEUTROPHILS % (AUTO) 67.3 % (40.0-77.0); PLATELET COUNT (AUTO) 275 K/uL (130-400); RED BLOOD CELL COUNT(AUTO) 3.79 MIL/uL (4.00-5.50); RED CELL DISTRIBUTION WIDTH 14.9 % (11.0-15.5); WHITE BLOOD COUNT (AUTO) 4.3 K/uL (4.8-10.8)
[2019-02-25 20:52] LABS: CREATININE 0.7 mg/dL (0.5-1.5); POTASSIUM 3.8 mmol/L (3.5-5.1)
[2019-02-25 20:58] LABS: ALBUMIN 3.8 g/dL (3.5-5.0); BILIRUBIN,TOTAL 0.4 mg/dL (0.2-1.0); TOTAL PROTEIN, SERUM 7.4 g/dL (6.0-8.3)
[2019-02-25] MEDS ORDERED: DiphenhydrAMINE HCL 50 MG/ML VIAL ONE (22:14)
[2019-02-25] MEDS ORDERED: PROCHLORPERAZINE EDISYLATE 10 MG/2 ML VIAL ONE (22:14)
== END 2019-02-26 00:34 | disposition home or self-care (01) ==
LOC: EDH 19:41
DX: R11.2 Nausea with vomiting, unspecified (principal); R51 Headache; R10.84 Generalized abdominal pain; R42 Dizziness and giddiness; K21.9 Gastro-esophageal reflux disease without esophagitis; E11.9 Type 2 diabetes mellitus without complications; F32.9 Major depressive disorder, single episode, unspecified
CPT/HCPCS: 36415; 70450; 74018; 80053; 82948; 83690; 85025; 93005; 96361; 96374; 96375; 99285; J0780; J1200; J2405; J7030

== ENCOUNTER 2019-03-07 09:12 | Inpatient (IN) | payer OTHER ==
[~2019-03-07] VITALS: Ht 149.9 cm; Wt 55.1 kg
[2019-03-07] MEDS ORDERED: SODIUM CHLORIDE 0.9% 1000ML 1,000 ML IV ONE ×2 (09:33→13:23)
[2019-03-07 09:45] LABS: BASOPHILS % (AUTO) 0.3 % (0.0-5.0); EOSINOPHILS % (AUTO) 0.5 % (0.0-8.0); HEMATOCRIT 34.2 % (36-48); LYMPHOCYTES % (AUTO) 32.6 % (21.0-51.0); MEAN CORPUSCULAR HEMOGLOBIN 29.3 pg (27.0-33.0); MEAN CORPUSCULAR HGB CONC 34.4 g/dL (32.0-36.0); MEAN CORPUSCULAR VOLUME 85.1 fL (79-99); MONOCYTES % (AUTO) 8.1 % (3.0-13.0); NEUTROPHILS % (AUTO) 58.5 % (40.0-77.0); NUCLEATED RED BLOOD CELLS 0.1 % (0.0-0.19); PLATELET COUNT (AUTO) 303 K/uL (130-400); RED BLOOD CELL COUNT(AUTO) 4.02 MIL/uL (4.00-5.50); RED CELL DISTRIBUTION WIDTH 14.1 % (11.0-15.5); WHITE BLOOD COUNT (AUTO) 5.2 K/uL (4.8-10.8)
[2019-03-07 09:56] LABS: CREATININE 0.6 mg/dL (0.5-1.5); POTASSIUM 3.9 mmol/L (3.5-5.1)
[2019-03-07 10:02] LABS: ALBUMIN 3.6 g/dL (3.5-5.0); BILIRUBIN,DIRECT 0.1 mg/dL (0.0-0.3); BILIRUBIN,TOTAL 0.4 mg/dL (0.2-1.0); TOTAL PROTEIN, SERUM 6.9 g/dL (6.0-8.3)
[2019-03-07] MEDS ORDERED: METOCLOPRAMIDE 10 MG/2 ML VIAL ONE (10:14)
[2019-03-07 10:30] LABS: MAGNESIUM 1.9 mg/dL (1.80-2.40); THYROID STIMULATING HORMONE 2.05 uIU/mL (0.36-3.74)
[2019-03-07 11:50] LABS: APPEARANCE,URINE Turbid (CLEAR); BILIRUBIN,URINE Negative (NEGATIVE); COLOR,URINE Dark Yellow (YELLOW); GLUCOSE, URINE (UA) 500 mg/dL (NEGATIVE); KETONES,URINE 15 mg/dL (NEGATIVE); LEUKOCYTE ESTERASE ,URINE Large (NEGATIVE); NITRATE,URINE Positive (NEGATIVE); OCCULT BLOOD,URINE Trace (NEGATIVE); PH,URINE 6.5 (5.0-8.0); PROTEIN,URINE POS 1+ mg/dL (NEGATIVE)
[2019-03-07 12:49] LABS: BACTERIA,URINE Many /HPF (None Seen); SQUAMOUS EPITHELIAL CELL,UR 30-50 /HPF (0-2)
[2019-03-07 12:50] LABS: RBC,URINE 0-1 /HPF (0-1)
[2019-03-07 13:45] LABS: BILIRUBIN,URINE Negative (NEGATIVE); COLOR,URINE Yellow (YELLOW); GLUCOSE, URINE (UA) 250 mg/dL (NEGATIVE); KETONES,URINE 15 mg/dL (NEGATIVE); LEUKOCYTE ESTERASE ,URINE Moderate (NEGATIVE); NITRATE,URINE Positive (NEGATIVE); OCCULT BLOOD,URINE Negative (NEGATIVE); PH,URINE 6.5 (5.0-8.0); PROTEIN,URINE Negative (NEGATIVE)
[2019-03-07 13:51] LABS: APPEARANCE,URINE SLIGHTLY CLOUDY (CLEAR)
[2019-03-07 13:58] LABS: BACTERIA,URINE Moderate /HPF (None Seen); RBC,URINE 0-1 /HPF (0-1); SQUAMOUS EPITHELIAL CELL,UR 0-2 /HPF (0-2)
[2019-03-07] MEDS: CEFTRIAXONE SODIUM 1 GM IV SCH (14:30)
[2019-03-07] MEDS ORDERED: CEFTRIAXONE SODIUM 1 GM ONE (15:03)
[2019-03-07] MEDS ORDERED: SODIUM CHLORIDE 0.9% 100 ML IV ONE (15:05)
[2019-03-07] MEDS ORDERED: ACETAMINOPHEN 325 MG TAB PO PRN (17:45)
[2019-03-07] MEDS ORDERED: MORPHINE SULFATE 2 MG/ML 1ML SYG IVP PRN (18:15)
[2019-03-07 21:00] VITALS: BP 122/71
--- NOTE | 2019-03-07 21:00 | NUR ---
Admission Assessment Received pt with no family around from ED, DX: severe depression, UTI. Routine admission assessment done, plan of care discuss, re-explain outcomes of test being done in ED. I made her aware by [place] need to be NPO as she is still pending U/S of the abdomen. Pt also made aware that she is pending to be seen by Dr. Castellanos for her depression which pt claimed has been seeing such physician as out pt. Pt noted to be pleasantly conversant, open to questions being asked, claimed has been in ED a week ago when she starts to feel sick once again nausea/vomiting with abdominal discomfort. confirmed she has gastroparesis that symptoms comes & go. Pt encourage to drink some OJ as her blood sugar reported in the 60's, pt asymptomatic. NS at 100cc/hr to be initiated. Pt currently denies discomfort. Re: home medications, stated her sister can bring it tomorrow but requested for us to call her, I will pass it on on report. Agreed to have the Flu vaccination, requested.
[2019-03-07] MEDS: SODIUM CHLORIDE 0.9% 1000ML 1,000 ML IV SCH (21:15)
[2019-03-07] MEDS: FAMOTIDINE/PF 20 MG/2 ML VIAL IV SCH (21:15)
[2019-03-08 00:51] VITALS: BP 116/71
[2019-03-08] MEDS: CEFTRIAXONE SODIUM 1 GM IV SCH ×2 (03:04→15:19)
[2019-03-08 04:51] VITALS: BP 135/82
[2019-03-08 05:48] LABS: BASOPHILS % (AUTO) 0.6 % (0.0-5.0); EOSINOPHILS % (AUTO) 0.7 % (0.0-8.0); LYMPHOCYTES % (AUTO) 43.2 % (21.0-51.0); MEAN CORPUSCULAR HEMOGLOBIN 29.7 pg (27.0-33.0); MEAN CORPUSCULAR HGB CONC 35.4 g/dL (32.0-36.0); MEAN CORPUSCULAR VOLUME 83.8 fL (79-99); MONOCYTES % (AUTO) 7.7 % (3.0-13.0); NEUTROPHILS % (AUTO) 47.8 % (40.0-77.0); PLATELET COUNT (AUTO) 267 K/uL (130-400); RED BLOOD CELL COUNT(AUTO) 3.57 MIL/uL (4.00-5.50); RED CELL DISTRIBUTION WIDTH 14.3 % (11.0-15.5); WHITE BLOOD COUNT (AUTO) 5.4 K/uL (4.8-10.8)
[2019-03-08] MEDS: SODIUM CHLORIDE 0.9% 1000ML 1,000 ML IV SCH ×2 (06:06→10:30)
[2019-03-08 06:20] LABS: ALBUMIN 3.1 g/dL (3.5-5.0); BILIRUBIN,TOTAL 0.2 mg/dL (0.2-1.0); CREATININE 0.5 mg/dL (0.5-1.5)
[2019-03-08 07:30] VITALS: BP 175/91
[2019-03-08] MEDS ORDERED: FLU VACC QS2019-20 36MOS UP/PF 60 MCG/0.5 ML ML IM SCH ×3 (09:15→13:20)
[2019-03-08] MEDS ORDERED: ONDA4TAB4 PO (09:56)
[2019-03-08] MEDS ORDERED: ESOM40CA54 PO (09:56)
[2019-03-08] MEDS ORDERED: FAMO40TA7 PO (09:56)
[2019-03-08] MEDS: FAMOTIDINE/PF 20 MG/2 ML VIAL IV SCH ×2 (10:01→21:02)
[2019-03-08] MEDS: ONDANSETRON HCL 4 MG/2 ML VIAL IVP PRN ×3 (10:01→21:03)
[2019-03-08] MEDS ORDERED: DEXTROSE 50%-WATER 50 ML DISP.SYRIN IV PRN (10:45)
[2019-03-08] MEDS ORDERED: GLUCAGON 1MG KIT 1 MG ML IM PRN (10:45)
[2019-03-08] MEDS ORDERED: POTASSIUM CHLORIDE 10% ELIXIR 20 MEQ/15 ML UDCUP PO PRN (10:45)
[2019-03-08] MEDS ORDERED: POTASSIUM CHLORIDE 10MEQ/100ML 100 ML IV PRN ×2 (10:45)
[2019-03-08 11:00] VITALS: BP 129/75
[2019-03-08] MEDS: SERTRALINE HCL 50 MG TABLET PO SCH (11:51)
[2019-03-08] MEDS ORDERED: LIDOCAINE HCL-MPF 1% 2ML VIAL ONE (12:10)
[2019-03-08] MEDS: POTASSIUM CHLORIDE 20 MEQ ERTAB PO PRN ×3 (12:24→19:04)
[2019-03-08 14:30] LABS: AMPHET/METH SCREEN,URINE NEGATIVE (NEGATIVE); BARBITURATE SCREEN, URINE NEGATIVE (NEGATIVE); BENZODIAZEPINES SCREEN,URINE NEGATIVE (NEGATIVE); CANNABINOID SCREEN,URINE NEGATIVE (NEGATIVE); COCAINE SCREEN,URINE NEGATIVE (NEGATIVE); OPIATE SCREEN,URINE NEGATIVE (NEGATIVE); PHENCYCLIDINE SCREEN,URINE NEGATIVE (NEGATIVE)
[2019-03-08 16:00] VITALS: BP 179/92
[2019-03-08 20:00] VITALS: BP 144/84
[2019-03-09] VITALS: BP 138/82
[2019-03-09] MEDS: CEFTRIAXONE SODIUM 1 GM IV SCH (02:05)
[2019-03-09 04:00] VITALS: BP 145/73
[2019-03-09 05:12] LABS: BASOPHILS % (AUTO) 0.5 % (0.0-5.0); EOSINOPHILS % (AUTO) 0.7 % (0.0-8.0); HEMATOCRIT 29.3 % (36-48); MEAN CORPUSCULAR HEMOGLOBIN 29.8 pg (27.0-33.0); MEAN CORPUSCULAR HGB CONC 35.1 g/dL (32.0-36.0); MONOCYTES % (AUTO) 8.3 % (3.0-13.0); NEUTROPHILS % (AUTO) 54.5 % (40.0-77.0); PLATELET COUNT (AUTO) 239 K/uL (130-400); RED BLOOD CELL COUNT(AUTO) 3.44 MIL/uL (4.00-5.50); RED CELL DISTRIBUTION WIDTH 14.1 % (11.0-15.5); WHITE BLOOD COUNT (AUTO) 5.1 K/uL (4.8-10.8)
[2019-03-09 05:18] LABS: HEMOGLOBIN A1C 8.9 % (4.0-6.0)
[2019-03-09 05:19] LABS: CREATININE 0.6 mg/dL (0.5-1.5); POTASSIUM 3.9 mmol/L (3.5-5.1)
[2019-03-09] MEDS: ONDANSETRON HCL 4 MG/2 ML VIAL IVP PRN ×2 (06:20→11:13)
[2019-03-09] MEDS: SODIUM CHLORIDE 0.9% 1000ML 1,000 ML IV SCH (06:25)
[2019-03-09 07:30] VITALS: BP 152/83
[2019-03-09] MEDS ORDERED: SERTRALINE HCL 50 MG TABLET PO SCH (09:00)
[2019-03-09] MEDS: FAMOTIDINE/PF 20 MG/2 ML VIAL IV SCH (09:58)
[2019-03-09] MEDS: SERTRALINE HCL 50 MG TABLET PO SCH (09:58)
[2019-03-09] MEDS ORDERED: PROMETHAZINE HCL 12.5 MG SUPP.RECT RC PRN (12:15)
--- NOTE | 2019-03-09 12:58 | NUR ---
D/C PLAN CM spoke to pt regarding d/c planning. pt is ind[place] and lives with sister. States sister can assist in care if needed. Pt has w/c at home. States she uses w/c if anticipates walking long distances. Plan to home. CM to f/u. Addendum: 03/09/19 at 1300 by JUAN R MICHEL CM Amended: Links added.
[2019-03-09] MEDS ORDERED: DOXYCYCLINE HYCLATE 100 MG TABLET PO SCH (15:30)
[2019-03-09] MEDS ORDERED: LACTULOSE 20 GM/30 ML UDCUP PO SCH (15:40)
[2019-03-09 16:00] VITALS: BP 166/96
[2019-03-09 19:25] VITALS: BP 166/98
[2019-03-09] MEDS: DOXYCYCLINE HYCLATE 100 MG TABLET PO SCH (20:17)
[2019-03-09] MEDS: FAMOTIDINE 20MG TAB 20 MG TAB PO SCH (20:17)
[2019-03-09] MEDS: DOCUSATE SODIUM 100 MG CAP PO SCH (20:17)
[2019-03-10 04:28] VITALS: BP 158/91
[2019-03-10 05:54] LABS: BASOPHILS % (AUTO) 0.7 % (0.0-5.0); EOSINOPHILS % (AUTO) 0.8 % (0.0-8.0); HEMATOCRIT 32.8 % (36-48); LYMPHOCYTES % (AUTO) 31.6 % (21.0-51.0); MEAN CORPUSCULAR HEMOGLOBIN 29.1 pg (27.0-33.0); MEAN CORPUSCULAR HGB CONC 34.8 g/dL (32.0-36.0); MEAN CORPUSCULAR VOLUME 83.8 fL (79-99); MONOCYTES % (AUTO) 8.5 % (3.0-13.0); NEUTROPHILS % (AUTO) 58.4 % (40.0-77.0); PLATELET COUNT (AUTO) 270 K/uL (130-400); RED BLOOD CELL COUNT(AUTO) 3.91 MIL/uL (4.00-5.50); RED CELL DISTRIBUTION WIDTH 13.9 % (11.0-15.5); WHITE BLOOD COUNT (AUTO) 4.7 K/uL (4.8-10.8)
[2019-03-10 06:01] LABS: CREATININE 0.5 mg/dL (0.5-1.5); POTASSIUM 3.7 mmol/L (3.5-5.1)
[2019-03-10] MEDS: INSULIN HUMULIN R 100 UNIT/ML 3ML SQ SCH ×4 (07:30→21:00)
[2019-03-10 07:49] VITALS: BP 104/73
[2019-03-10] MEDS: FAMOTIDINE 20MG TAB 20 MG TAB PO SCH ×2 (08:44→21:49)
[2019-03-10] MEDS: SERTRALINE HCL 50 MG TABLET PO SCH (08:44)
[2019-03-10] MEDS: DOXYCYCLINE HYCLATE 100 MG TABLET PO SCH ×2 (08:44→21:49)
[2019-03-10] MEDS: DOCUSATE SODIUM 100 MG CAP PO SCH (08:45)
[2019-03-10 11:00] VITALS: BP 161/95
[2019-03-10] MEDS: POLYETHYLENE GLYCOL 3350 17 GM POWD.PACK PO SCH (13:45)
[2019-03-10 16:00] VITALS: BP 119/70
[2019-03-10] MEDS: MEGESTROL 400 MG/10 ML UDCUP PO SCH (16:00)
--- NOTE | 2019-03-10 19:07 | NUR ---
DR CROCKETT CAME TO SEE THE PATIENT AND GAVE NEW MED ORDERS.
[2019-03-10 19:10] VITALS: BP 114/69
[2019-03-10] MEDS ORDERED: FLUOXETINE HCL 10 MG CAPSULE PO SCH (19:15)
[2019-03-10] MEDS ORDERED: SERTRALINE HCL 50 MG TABLET PO SCH (20:15)
[2019-03-10] MEDS ORDERED: SERTRALINE HCL 50 MG TABLET ONE (21:47)
[2019-03-11 00:22] VITALS: BP 118/62
[2019-03-11 04:20] VITALS: BP 126/78
[2019-03-11 04:39] LABS: BASOPHILS % (AUTO) 0.4 % (0.0-5.0); EOSINOPHILS % (AUTO) 1.3 % (0.0-8.0); HEMATOCRIT 31.4 % (36-48); LYMPHOCYTES % (AUTO) 36.3 % (21.0-51.0); MEAN CORPUSCULAR HEMOGLOBIN 29.7 pg (27.0-33.0); MEAN CORPUSCULAR HGB CONC 35.5 g/dL (32.0-36.0); MEAN CORPUSCULAR VOLUME 83.8 fL (79-99); MONOCYTES % (AUTO) 8.9 % (3.0-13.0); NEUTROPHILS % (AUTO) 53.1 % (40.0-77.0); NUCLEATED RED BLOOD CELLS 0.1 % (0.0-0.19); PLATELET COUNT (AUTO) 251 K/uL (130-400); RED BLOOD CELL COUNT(AUTO) 3.74 MIL/uL (4.00-5.50); RED CELL DISTRIBUTION WIDTH 14.1 % (11.0-15.5); WHITE BLOOD COUNT (AUTO) 6.3 K/uL (4.8-10.8)
[2019-03-11 04:49] LABS: CREATININE 0.6 mg/dL (0.5-1.5); POTASSIUM 3.1 mmol/L (3.5-5.1)
[2019-03-11] MEDS: INSULIN HUMULIN R 100 UNIT/ML 3ML SQ SCH ×2 (06:56→11:30)
[2019-03-11 08:00] VITALS: BP 146/86
[2019-03-11] MEDS: POLYETHYLENE GLYCOL 3350 17 GM POWD.PACK PO SCH ×2 (09:00→09:28)
[2019-03-11] MEDS ORDERED: SERTRALINE HCL 50 MG TABLET PO SCH (09:00)
[2019-03-11] MEDS: DOXYCYCLINE HYCLATE 100 MG TABLET PO SCH (09:31)
[2019-03-11] MEDS: MEGESTROL 400 MG/10 ML UDCUP PO SCH (09:31)
[2019-03-11] MEDS: FAMOTIDINE 20MG TAB 20 MG TAB PO SCH (09:31)
[2019-03-11] MEDS: ONDANSETRON HCL 4 MG/2 ML VIAL IVP PRN (09:35)
[2019-03-11] MEDS ORDERED: POTASSIUM CHLORIDE 10% ELIXIR 20 MEQ/15 ML UDCUP PO SCH (10:00)
[2019-03-11] MEDS ORDERED: DOCUSATE SODIUM 100 MG CAP PO SCH (10:15)
--- NOTE | 2019-03-11 10:39 | NUR ---
OBSERVED PATIENT IN THE CHAIR SLOUGHING WITH HER HEAD DOWN, PLAN OF CARE WAS EXPLAINED AND EMOTIONAL SUPPORT WAS PROVIDED TO HER. MEDICATION WAS GIVEN TO HER FOR C/O NAUSEA THEN THE AM MEDS WAS GIVEN TO HER AND SHE ONLY TOOK THE PILLS AND LEFT THE MIRALAX AND MEGACE. SHE SAID THAT SHE DOESN'T WANT TO TAKE ALL THESE MEDICATIONS SHE MENTIONED TO THE DOCTOR, AND WOULD RATHER GO HOME. MEDICATION WAS WAISTED AND DR GIRARD WAS MAde aware that she had also refused the potassium supplement and colace.
[2019-03-11] MEDS ORDERED: DOXY100T2 PO (11:12)
[2019-03-11] MEDS ORDERED: SERT50TA PO (11:12)
[2019-03-11] MEDS ORDERED: MEGE400O4 PO (11:12)
[2019-03-11] MEDS ORDERED: DOCU-275 PO (11:12)
[2019-03-11] MEDS ORDERED: BISA5TAB12 PO (11:12)
[2019-03-11 12:00] VITALS: BP 127/73
--- NOTE | 2019-03-11 15:45 | NUR ---
ENEMA ADMINISTERED WITH MINIMAL RESULT AT THIS TIME. PATIENT WAS INSTRUCTED TO REMAIN ON HER LEFT SIDE FOR A FEW MORE MINUTES FOR BETTER RESULT. WILL CONTINUE TO MONITOR.
[2019-03-11 16:00] VITALS: BP 152/87
--- NOTE | 2019-03-11 18:00 | NUR ---
PATIENT REPORTED TO HAVE SMALL BM POST ENEMA. I EXPLAINED THE DISCHARGE INSTRUCTIONS TO HER AND HER SISTER AT THE BEDSIDE AND THE SCHEDULED F/U APPOINTMENT WAS GIVEN TO HER. RETURNED UNDERSTANDING RECEIVED. IV ACCESS WAS REMOVED WITHOUT PROBLEM. LEFT THE UNIT STABLE IN A W/C. REPORTED TO ALREADY HAVE AN APPOINTMENT WITH DR CROCKETT.
[2019-03-11] MEDS ORDERED: BISACODYL 5 MG TABLET.DR PO SCH (21:00)
[2019-03-12] MEDS ORDERED: MEGESTROL 400 MG/10 ML UDCUP PO SCH (09:00)
== END 2019-03-11 18:40 | disposition home or self-care (01) | DRG 690 ==
LOC: EDH 09:12 → EDHIP 14:30 → OBSVTOIN 14:30 → 3AH 20:51
PROVIDERS: ADMIT Hospitalist; ATTEND Hospitalist
DX: N39.0 Urinary tract infection, site not specified (principal); E86.0 Dehydration; E87.6 Hypokalemia; F32.9 Major depressive disorder, single episode, unspecified; K21.9 Gastro-esophageal reflux disease without esophagitis; E11.9 Type 2 diabetes mellitus without complications; K56.41 Fecal impaction; Z23 Encounter for immunization; Z91.19 Patient's noncompliance with other medical treatment and regimen; Z83.3 Family history of diabetes mellitus; Z82.3 Family history of stroke; Z82.49 Family history of ischemic heart disease and other diseases of the circulatory system
CPT/HCPCS: 36415; 74018; 74176; 76705; 80048; 80053; 80076; 80305; 81001; 82550; 82948; 83036; 83690; 83735; 84132; 84443; 84484; 85025; 86677; 87077; 87088; 87186; 93005; G0008; G0378; J0696; J1815; J2405; J2765; J3490; J7030; Q2035

== ENCOUNTER 2019-04-16 08:38 | Emergency (ER) | payer OTHER ==
[~2019-04-16 08:38] MED LIST changes: +BISA5TAB12 PO; -DIVA-78 PO; +DOCU-275 PO; +DOXY100T2 PO; +ESOM40CA54 PO; +FAMO40TA7 PO; +MEGE400O4 PO; -MULT-1296 PO; +ONDA4TAB4 PO; -SERT25TA5 PO; +SERT50TA PO
[2019-04-16 08:55] LABS: BASOPHILS % (AUTO) 0.3 % (0.0-5.0); EOSINOPHILS % (AUTO) 0.2 % (0.0-8.0); HEMATOCRIT 34.6 % (36-48); LYMPHOCYTES % (AUTO) 34.7 % (21.0-51.0); MEAN CORPUSCULAR HEMOGLOBIN 29.5 pg (27.0-33.0); MEAN CORPUSCULAR VOLUME 86.9 fL (79-99); MONOCYTES % (AUTO) 9.6 % (3.0-13.0); NEUTROPHILS % (AUTO) 55.2 % (40.0-77.0); NUCLEATED RED BLOOD CELLS 0.1 % (0.0-0.19); PLATELET COUNT (AUTO) 342 K/uL (130-400); RED BLOOD CELL COUNT(AUTO) 3.98 MIL/uL (4.00-5.50); WHITE BLOOD COUNT (AUTO) 4.6 K/uL (4.8-10.8)
[2019-04-16 09:06] LABS: CARBON DIOXIDE 33 mmol/L (21-32); CHLORIDE 101 mmol/L (101-111); CREATININE 0.7 mg/dL (0.5-1.5); GLOMERULAR FILTR. RATE CALC 92 mL/min (>60); GLUCOSE,RANDOM 139 mg/dL (70-105); POTASSIUM 3.3 mmol/L (3.5-5.1); SODIUM SERUM 141 mmol/L (136-145); UREA NITROGEN, BLOOD 25 mg/dL (7-18)
[2019-04-16 09:10] LABS: PARTIAL THROMBOPLASTIN TIME 21.7 SEC (26.3-35.5); PROTHROMBIN TIME 10.5 SEC (9.6-11.6)
[2019-04-16] MEDS ORDERED: ONDANSETRON HCL 4 MG/2 ML VIAL ONE (09:14)
[2019-04-16] MEDS ORDERED: PROCHLORPERAZINE EDISYLATE 10 MG/2 ML VIAL ONE (09:16)
[2019-04-16] MEDS ORDERED: DiphenhydrAMINE HCL 50 MG/ML VIAL ONE (09:16)
[2019-04-16 09:17] LABS: ALANINE AMINOTRANSFERASE 18 U/L (12-78); ALBUMIN 3.3 g/dL (3.5-5.0); ASPARTATE AMINOTRANSFERASE 15 U/L (10-37); BILIRUBIN,TOTAL 0.5 mg/dL (0.2-1.0); CREATINE KINASE, TOTAL 11 U/L (21-232); MYOGLOBIN 23 ng/mL (10-92); TROPONIN I < 0.04 ng/mL (0.00-0.06)
[2019-04-16] MEDS ORDERED: SODIUM CHLORIDE 0.9% 1000ML 1,000 ML IV ONE (09:17)
[2019-04-16] MEDS ORDERED: LEVOFLOXACIN 500 MG/D5W 100 ML 100 ML ONE (09:59)
[2019-04-16] MEDS ORDERED: FAMOTIDINE/PF 20 MG/2 ML VIAL IV ONE (11:16)
== END 2019-04-16 11:37 | disposition home or self-care (01) ==
LOC: EDH 08:38
DX: E86.9 Volume depletion, unspecified (principal); I95.9 Hypotension, unspecified; R11.2 Nausea with vomiting, unspecified; E11.43 Type 2 diabetes mellitus with diabetic autonomic (poly)neuropathy; K31.84 Gastroparesis; K29.00 Acute gastritis without bleeding; K21.9 Gastro-esophageal reflux disease without esophagitis; F32.9 Major depressive disorder, single episode, unspecified
CPT/HCPCS: 36415; 71045; 80053; 82550; 83605; 83874; 84145; 84484; 85025; 85610; 85730; 87040 ×2; 87804 ×2; 93005; 96365; 96366; 96375; 99291; J0780; J1200; J1956; J2405; J3490; J7030